=== PATIENT | female | born 1940 | race Caucasian/White ===

== ENCOUNTER 2020-07-03 10:32 | Emergency (ER) | payer MEDICARE, OTHER, SELFPAY ==
[2020-07-03 10:36] VITALS: BP 225/71; PULSE 62; RESP 17; TEMP 36.6; O2SAT 96; BMI 29.0
--- NOTE | 2020-07-03 10:59 | CT_ITS ---
STUDY: CT BRAIN WITHOUT CONTRAST REASON FOR EXAM: Female, 79 years old. HTN SINCE 4 AM, KERN AND BLURRED VISION RADIATION DOSAGE (If Supplied By Facility): CTDIvol = ( 44.99 ) mGy, DLP = ( 829.85 ) mGycm TECHNIQUE: Transaxial CT imaging of the brain was performed without administration of intravenous contrast material. Individualized dose optimization techniques were used for this CT. COMPARISON: No relevant priors. FINDINGS: Normal soft tissue structures. Normal calvarium. There is moderate cerebral atrophy with widening of the extra-axial spaces and ventricular dilatation. There are areas of decreased attenuation within the white matter tracts of the supratentorial brain, consistent with microvascular disease changes. Normal basal ganglia and thalami. Normal brainstem. Normal cerebellum. There is no intracranial hemorrhage. There are no findings of an acute ischemic infarction. Normal visualized paranasal sinuses. CT/Brain/Head without Contrast IMPRESSION: Chronic involutional changes of the brain. Electronically Signed: Art Sin MD at 12:05 EST Tel , Service support ,
--- NOTE | 2020-07-03 10:59 | EKG12_ITS ---
Test Reason : HYPERTENSION Blood Pressure : / mmHG Vent. Rate : 060 BPM Atrial Rate : 060 BPM P-R Int : 182 ms QRS Dur : 086 ms QT Int : 442 ms P-R-T Axes : 037 023 063 degrees QTc Int : 442 ms Sinus rhythm with Premature atrial complexes Otherwise normal ECG Confirmed by SADAF BURNS, KIMBERLEY ([id number]), digital editor FELA CHAPARRO ([id number]) on 07/05/2020 8:45:29 AM Referred By: TEDDY Confirmed By:KIMBERLEY TALAVERA MD
--- NOTE | 2020-07-03 11:00 | ED.DCSUM_ITS ---
- ER Visit Summary Date of Service: 07/03/20 Chief Complaint: Elevated blood pressure History of Present Illness: The patient is a 79 F history of hypertension, CAD, prior MT, prior stroke, cardiac stents x7. Patient states she has had prior valvular heart surgery. Since her last 2 to 3 days she has had elevated blood pressure. She is also had intermittent headaches. She denies any falls or head trauma. She denies any nausea, vomiting, diarrhea or fever. No dysuria. No fever or cough. No shortness of breath. No chest pain. Physical Examination: Elderly female no acute distress initial blood pressure 225/71. Afebrile. Pulse ox 96% on room air no signs hypoxia. H EENT exam unremarkable. No facial droop. No trauma. Neck nontender. No lymphadenopathy. Lungs clear to auscultation bilaterally. Heart regular rhythm rate about 60 no murmur. Chest were nontender. Abdomen soft nontender. Normal bowel sounds no peritoneal signs. Nondistended. Patient moving all 4 extremities. Nontender. No edema. 5-5 activity assistant strength bilaterally. Dorsi plantarflexion intact. Neurologically she is awake and alert. She knows it it is July. She knew that we just celebrated . She is answering questions and following commands any difficulty. She has normal speech. No focal motor deficits. Test Results: BC normal white count 8. Hemoglobin 13. Chemistries normal normal creatinine and gap. UA normal no signs of infection. EKG normal sinus rhythm rate of 60 with PACs. No signs of MT or ischemia. No dysrhythmia. CT of the brain shows chronic changes but no acute process. Read by the radiologist and reviewed by me. Multiple repeat exams patient is doing well. Her current blood pressure is 160/60 after she was treated with IV Lopressor. She currently has no complaints. I went over all test results both with the patient and her daughter at bedside. Daughter wants me to get in touch of her doughnut icer machine Dr. Oskar Blackmon who I currently have on page. At this time I would not make any changes in her blood pressure medications. She will follow up with her doughnut icer machine. Emergency Department Course and Treatment: Elderly female with acute on chronic hypertension with intermittent headaches. CAT scan labs to be obtained. She will be given IV Lopressor. She will be reassessed. She was also given a dose of p.o. lisinopril to control her pressure more long- term. And Tylenol for her headache. Treatment Plan: Follow-up with her doughnut icer machine. Take an additional lisinopril if and only if systolic blood pressures running greater than 200 or diastolic greater than 100 and she is having symptoms. Disposition: Discharge Impression: Acute on chronic hypertension History of prior stroke History of prior CAD with stents and prior MT This note was generated with [employer] dictation software. It may contain incorrect words, spelling, and punctuation that were not noted in review of the chart prior to signing ED Disposition - Plan for ED Patient: Disposition: Home or Assisted Living Instructions: ED High Blood Pressure ... Referrals: Rafa Henderson DO [Primary Care Provider] - As Needed Additional Instructions: Call and follow-up with Dr. Oskar Blackmon for any adjustments to your medications. I would continue current blood pressure medications as prescribed. If the systolic blood pressures running greater than 200 or the diastolic blood pres sures running greater than 100 she could take an extra lisinopril.
[2020-07-03] MEDS: Metoprolol Tartrate 5 MG/5 ML Vial IV (11:14)
[2020-07-03 11:20] LABS: Absolute Lymphocyte Count 1.15 X10^3/uL (0.83-4.51); Absolute Neutrophil Count 3.7 X10^3/uL (2.0-7.7); Basophil# 0.03 X10^3/uL; Basophil% 0.4 % (0-1); Eosinophils% 37.9 % (0-5); Hematocrit 40.2 % (37-47); Lymphocyte # 1.15 X10^3/ul (4.0); Lymphocyte % 13.8 % (19-41); Mean Corp Hgb Conc 32.3 g/dL (32-36); Mean Corpuscular Hgb 29.4 pg (27.0-32.0); Mean Platelet Vol. 9.8 fl (6.2-12.0); Monocyte# 0.33 X10^3/uL; NRBC Flagged by Analyzer 0 % (0-5); Neutrophil # 3.65 X10^3/uL (2.7-7.7); Neutrophil % 43.7 % (47-70); POSITIVE DIFFERENTIAL YES; Platelet Count 251 K/mm3 (150-450); RBC Distribution Width SD 40.3 fl (35.1-43.9); Red Blood Count 4.42 M/mm3 (4.2-5.4); White Blood Count 8.3 K/mm3 (4.4-11.0)
[2020-07-03 11:21] LABS: Differential Indicated SCAN CRITERIA MET; Eosinophil# 3.16 X10^3/uL
[2020-07-03 11:26] VITALS: BP 173/62; PULSE 53; RESP 12; O2SAT 96
[2020-07-03 11:27] LABS: Anion Gap 5 (5-15); BUN 13 mg/dL (7-18); BUN/Creat Ratio 26.9 RATIO (10-20); Calcium,Total 8.8 mg/dL (8.5-10.1); Chloride 109 mmol/L (98-107); Creatinine, Serum 0.48 mg/dL (0.55-1.02); EST Glomerular Filtration Rate 131 mL/min (>60); Est Glom Filt Rate - Afr Amer 159 mL/min (>60); Glucose 99 mg/dL (74-106); Potassium 3.7 mmol/L (3.5-5.1); Sodium Level 143 mmol/L (136-145)
[2020-07-03 11:36] LABS: Bacteria 0 SEEN /hpf (None Seen); Mucous, Urine 0 SEEN /hpf (<or=2+); Red Blood Cells-Urine 0 SEEN /hpf (0-5); Squamous Epithelial Cells - UA 0 SEEN /hpf (5-10); White Blood Cells 0 SEEN /hpf (0-5)
[2020-07-03 11:39] LABS: Differential Comment SCANNED
[2020-07-03 11:43] LABS: Color, Urine Yellow (Yellow); Glucose, Dipstick Normal (Normal); Ketone-Dipstick Negative (Negative); Leukocyte Esterase-Dipstick Negative /ul (Negative); Nitrite-Dipstick Negative (Negative); Occult Blood-Urine Negative /ul (Negative); Protein-Dipstick Negative (Negative); Specific Gravity, Urine 1.015 (1.002-1.030); Urine Bilirubin Dipstick Negative (Negative); Urine Clarity Clear (Clear); Urine Urobilinogen Normal (Normal)
[2020-07-03 12:07] VITALS: BP 173/63; PULSE 55; RESP 16; O2SAT 95
--- NOTE | 2020-07-03 12:55 | DCINST.ED_ITS ---
ED Disposition - Plan for ED Patient: Disposition: Home or Assisted Living Instructions: ED High Blood Pressure ... Referrals: Rafa Henderson DO [Primary Care Provider] - As Needed Additional Instructions: Call and follow-up with Dr. Oskar Blackmon for any adjustments to your medications. I would continue current blood pressure medications as prescribed. If the systolic blood pressures running greater than 200 or the diastolic blood pressur es running greater than 100 she could take an extra lisinopril.
[2020-07-03 12:58] VITALS: BP 160/60; PULSE 55; RESP 13; O2SAT 95
[2020-07-03 13:53] VITALS: BP 191/63; PULSE 54
--- NOTE | 2020-07-03 13:53 | ED.RN ---
Went in to discharge pt. bp 191/63. notified dr. dsouza. dr. dsouza gave verbal order for 20mg po of lisinopril.
[2020-07-03] MEDS: Lisinopril 20 MG Tablet PO (13:59)
[2020-07-03] MEDS: Acetaminophen 500 MG Tablet 1000 MG PO (14:18)
[2020-07-03 14:26] VITALS: BP 198/73; PULSE 57; RESP 18; O2SAT 97
[2020-07-05 13:27] LABS: Pathologist Review Reviewed
== END 2020-07-03 14:26 | disposition home or self-care (01) ==
PROVIDERS: Emergency Provider Emergency Medicine; PCP Family Medicine
DX: I10 Essential (primary) hypertension (principal); I25.10 Atherosclerotic heart disease of native coronary artery without angina pectoris; I49.1 Atrial premature depolarization; I25.2 Old myocardial infarction; Z86.73 Personal history of transient ischemic attack (TIA), and cerebral infarction without residual deficits; Z95.5 Presence of coronary angioplasty implant and graft
CPT/HCPCS: 70450; 80048; 81001; 85025; 93005; 96374; 99285; A4216

== ENCOUNTER → 2020-09-28 10:47 | Outpatient (CLI) | payer MEDICARE, OTHER, SELFPAY ==
--- NOTE | 2020-09-28 11:02 | MRI_ITS ---
PROCEDURE: MRA OF THE ABDOMINAL AORTA (Renal Arteries) w/o contrast REASON FOR EXAM: Hypertension TECHNIQUE: 3-D [id number] (TOF) imaging was performed in an MRI scanner. Images were obtained from the upper abdominal aorta to the aortic bifurcation without IV contrast. Images were then reformatted in multiple planes. TECHNICAL QUALITY: Fair COMPARISON: None. FINDINGS: Abdominal aorta: No demonstrated narrowing. Celiac and superior mesenteric arteries: Difficult to visualize proximally. Inferior mesenteric artery: No demonstrated narrowing. Right renal artery(single): Severe narrowing at the ostium and proximal portion. Left renal artery(single): Severe narrowing at the ostium. MRI/MRA Abdomen W/ or W/O Contrast IMPRESSION: Limited examination due to the absence of IV contrast. 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 Electronically Signed: Jose Martin More MD at 23:58 EDT Tel , Service support ,
[2020-09-29 07:21] LABS: CREATININE FINGERSTICK 0.99 mg/dL (0.55-1.02); EGFR FINGERSTICK 58 mL/min (>60)
== END ==
PROVIDERS: PCP Family Medicine
DX: I70.1 Atherosclerosis of renal artery (principal); I10 Essential (primary) hypertension
CPT/HCPCS: 74185; C8902

== ENCOUNTER 2024-02-15 11:41 | Emergency (ER) | payer MEDICARE, OTHER, SELFPAY ==
[2024-02-15 11:41] VITALS: BP 149/113; BP 151/110; PULSE 85; PULSE 88; RESP 16; TEMP 36.1; O2SAT 94; O2SAT 95
[2024-02-15 11:55] VITALS: BMI 29.2
--- NOTE | 2024-02-15 12:21 | CT_ITS ---
STUDY: CT CHEST WITHOUT CONTRAST REASON FOR EXAM: Female, 83 years old. Left mid rib trauma RADIATION DOSAGE (If Supplied By Facility): CTDIvol = ( 8.83 ) mGy, DLP = ( 355.38 ) mGycm TECHNIQUE: Transaxial imaging was performed without the administration of intravenous contrast material. Multiplanar coronal and sagittal images were reformatted. Individualized dose optimization techniques were used for this CT. COMPARISON: No relevant priors. FINDINGS: CHEST Small bilateral axillary lymph nodes. There is a small left pleural effusion with left basilar atelectasis. Mild increased markings at the right lung base suggestive of possible scarring. There is no demonstrated pleural abnormality. Sternal cerclage wires are present from a prior sternotomy. Prior aortic valve replacement. Coronary artery calcification. Normal mediastinum. Normal hilar regions. Normal unenhanced pulmonary arteries. There is atherosclerotic calcification of the aortic arch with tortuosity and elongation of the aortic arch and descending thoracic aorta. There are multi-level degenerative changes of the thoracic spine. Increased kyphosis. There is a moderate-sized hiatal hernia. CT/Chest without Contrast IMPRESSION: Small left pleural effusion with left basilar atelectasis and mild scarring at the right lung base. Hiatal hernia. Increased kyphosis. Electronically Signed: Marcin Hernandez MD at 12:44 EDT ,
--- NOTE | 2024-02-15 12:21 | ED.VIS.CHEST ---
HPI History of Present Illness Chief Complaint: Chest Other Informant: patient and spouse/S.O. Narrative Narrative: 83-year-old female presenting to the emergency room with left chest pain. Patient states that 3 to 4 days ago she was cleaning spots on the rug when she struck her left chest on the coffee table. Since that time she has had pain along the left mid ribs underneath her left breast. She notes is worse with movement but also hurts just at rest. No particular change in breathing or coughing.. She states that she came to emergency because her children would not leave her alone. Patient denies any other injuries. She placed a Lidoderm patch on her chest comfort. He has not been very effective [facility] Medical History (Updated 02/15/24 @ 13:[address] Chris Rosado DO) Hypercholesterolemia Hypertension Home Medications ?Medication ?Instructions ?Recorded ?Last Taken ?Type aspirin 81 mg chewable tablet 81 mg PO DAILY@0800 07/03/20 Unknown History atorvastatin 80 mg tablet 80 mg PO QHS 07/03/20 Unknown History cholecalciferol (vitamin D3) 10 400 unit PO BID 07/03/20 Unknown History mcg (400 unit) capsule lisinopril 20 mg tablet 20 mg PO BID 07/03/20 Unknown History metoprolol tartrate 50 mg tablet 50 mg PO BID 07/03/20 Unknown History prazosin 1 mg capsule 1 mg PO BID 07/03/20 Unknown History oxycodone-acetaminophen 5 mg-325 1 tab PO Q6H PRN PRN Pain 3 days 02/15/24 Unknown Rx mg tablet #12 TABLETS Allergy/AdvReac Type Severity Reaction Status Date / Time codeine AdvReac Vomiting Verified 02/15/24 11:42 Social History Smoking Status: Never smoker [facility] ED Constitutional Constitutional ED: Denies chills, fever(s) or weight loss Eyes Eyes: Denies change in vision or diplopia ENT ENT ED: Denies ear pain, rhinorrhea or sore throat Cardiovascular Cardiovascular: Reports as per HPI and chest pain; Denies orthopnea, palpitations or racing heartbeat Respiratory/Chest Respiratory/Chest: Denies cough, dyspnea or orthopnea Gastrointestinal Gastrointestinal: Denies abdominal pain, diarrhea, nausea or vomiting Genitourinary Genitourinary ED: Denies dysuria, hematuria or urinary frequency Musculoskeletal Musculoskeletal: Denies arthralgias or myalgias Integumentary Denies abscess or rash Neurologic Neurologic: Denies headache(s) or weakness Psychiatric Psychiatric: Denies anxiety, depression, suicidal ideation or suicidal thoughts Endocrine Endocrinology: Denies polydipsia, polyphagia or polyuria Allergic/Immunologic Allergic/Immunologic ED: Denies mouth swelling, tongue swelling or urticaria EXAM Physical Exam Const Vital Signs: 02/15/24 11:41 02/15/24 11:41 02/15/24 11:55 Temperature 97 F L Temperature Source Temporal Pulse Rate 88 85 Respiratory Rate 16 16 Respiratory Effort Normal Non-Labored Blood Pressure 149/113 H 151/110 H Blood Pressure Mean 125 123 Pulse Ox 95 94 Oxygen Delivery Method Room Air Room Air 02/15/24 14:22 Temperature 97.8 F Temperature Source Pulse Rate 73 Respiratory Rate 18 Respiratory Effort Blood Pressure 123/69 H Blood Pressure Mean 87 Pulse Ox 96 Oxygen Delivery Method Positive well nourished and well developed General Appearance ED: well developed HEENT Reports normocephalic, head/scalp atraumatic and moist mucous membranes Eyes PERRL and EOMs intact bilaterally Neck no lymphadenopathy, supple and no JVD Chest Wall Chest Narrative: Tender palpation along the mid left mid axillary ribs extending over into the anterior aspect of the left chest. There is superficial abrasions to the anterior left mid chest area. No palpable bony crepitance or subcutaneous emphysema Resp normal respiratory effort and clear to auscultation bilaterally Cardio regular rate, regular rhythm and no murmurs GI normal to inspection, nondistended, normoactive bowel sounds and non-tender Palpation: soft Back/Spine no CVA tenderness and normal ROM Extremity normal to inspection General Extremety ED: Negative for edema General Extremity: Negative for edema Neuro oriented x3 and CN's II-XII intact bilaterally Sensorium / Orientation: alert Motor Exam: strength 5/5 throughout Psych mental status grossly normal Mood & Affect: Negative for depressed or tearful Skin no rashes or lesions noted and no wounds MDM MDM MDM Narrative Medical decision making narrative: Differential diagnosis includes rib fracture chest wall contusion pneumothorax pulmonary contusion hemothorax shingles CT of the chest without contrast was obtained. I do not appreciate an obvious rib fracture or pulmonary contusion or pneumothorax. There is a small effusion located at the base. It is very difficult to say the exact etiology of this. Could be traumatic if I saw a rib fracture which are not obviously seen 1. I think the patient can be discharged home I will write for pain medication. Would recommend follow-up with primary care in 1 week return if worsening History & Record Review Discussion w/independent historian: Patient, Family and Significant other Radiography Diagnostic Testing: Clinical Impression(s) from Imaging Studies Chest CT 02/15/24 12:21 IMPRESSION: Small left pleural effusion with left basilar atelectasis and mild scarring at the right lung base. Hiatal hernia. Increased kyphosis. Electronically Signed: Marcin Hernandez MD at 12:44 EDT , Discharge Plan Triage Chief Complaint: Chest Other ED Provider: Chris Rosado Dx/Rx/DC Orders Clinical Impression: Chest wall contusion, Fall Instructions: ED Chest Wall Contusion, ED Rib Contusion or Minor Fracture Prescriptions: New oxycodone-acetaminophen 5-325 mg tablet 1 tab PO Q6H PRN PRN (Reason: Pain) 3 Days Qty: 12 0RF No Action atorvastatin 80 MG tablet 80 mg PO QHS prazosin 1 MG capsule 1 mg PO BID lisinopril 20 MG tablet 20 mg PO BID metoprolol tartrate 50 MG tablet 50 mg PO BID aspirin 81 MG tablet,chewable 81 mg PO DAILY@0800 cholecalciferol (vitamin D3) 400 UNIT capsule 400 unit PO BID Primary Care Provider: Tyron Rocha Referrals: Rafa Henderson DO [Non-Staff] - 1 Week Print Language: Nepalese Disposition Disposition: Home, Self Care Discharge Date/Time: 02/15/24 14:23
[2024-02-15 14:22] VITALS: BP 123/69; PULSE 73; RESP 18; TEMP 36.6; O2SAT 96
== END 2024-02-15 14:23 | disposition home or self-care (01) ==
PROVIDERS: Emergency Provider Emergency Medicine; PCP Family Medicine; Visit Provider Emergency Medicine
DX: S20.20XA Contusion of thorax, unspecified, initial encounter (principal); E78.00 Pure hypercholesterolemia, unspecified; I10 Essential (primary) hypertension; W22.03XA Walked into furniture, initial encounter; Y93.89 Activity, other specified; Z79.82 Long term (current) use of aspirin; Z79.899 Other long term (current) drug therapy
CPT/HCPCS: 71250; 99282